=== PATIENT | female | born 1985 | race Caucasian/White ===

== ENCOUNTER → 2022-02-16 | Outpatient (CLI) | payer BC | LOC: COL.RAD 02-14 15:45 | DX: E04.9 Nontoxic goiter, unspecified (principal) ==

== ENCOUNTER 2024-03-23 01:24 | Emergency (ER) | payer BC ==
[~2024-03-23] VITALS: Ht 167.6 cm; Wt 75.0 kg
[2024-03-23 01:32] VITALS: BP 126/94; PULSE 81; TEMP 98.7
== END 2024-03-23 02:15 | disposition home or self-care (01) ==
LOC: COL.ER 01:24
DX: S01.112A Laceration without foreign body of left eyelid and periocular area, initial encounter (principal); W22.03XA Walked into furniture, initial encounter; Y92.091 Bathroom in other non-institutional residence as the place of occurrence of the external cause